=== PATIENT | male | born 1990 | race Caucasian/White ===

== ENCOUNTER → 2025-05-28 19:09 | Outpatient (CLI) | payer OTHER, SELFPAY ==
--- NOTE | 2025-05-28 19:14 | DI.MRI.S_ITS ---
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 Axial thin-slice 3D CISS, coronal TruFISP, axial T1 spin echo with fat saturation through the internal auditory canals. After the administration of contrast, thin slice axial and coronal T1 spin echo with fat saturation through the internal auditory canals, and axial and coronal and sagittal T1 spin echo with fat saturation through the brain. COMPARISON: None. FINDINGS: Image quality: Excellent. Cerebellopontine angles: No cerebellopontine angle masses. Inner ear structures appear normally formed. No suspicious enhancement in the internal auditory canal or along the course of the 7th cranial nerve. CSF spaces: Ventricles are normal in size and shape. No extra-axial fluid collections. Basal cisterns are patent. Brain: No intracranial bleeds or mass effects. Torres-white matter interface is intact. No abnormal intracranial enhancement. Diffusion weighted images demonstrate no acute ischemic insults. Brainstem appears normal. Normal intravascular flow voids are present. Small focus of susceptibility artifact within the right frontal lobe (9/19) is nonspecific. Skull and face: Calvarial marrow signal is normal. Orbits appear normal. Sinuses: Small left maxillary sinus mucous retention cyst. Sinuses and mastoids are otherwise clear. IMPRESSION: No cause for patient's symptoms is identified. Normal appearance of the internal auditory canals and cerebellopontine angles. No acute intracranial abnormalities or abnormal intracranial enhancement. Small focus of susceptibility artifact within the right frontal lobe is nonspecific. May represent small cavernoma or sequela of prior microhemorrhage. Dictated by: Jerry Valdes M.D. on 05/29/2025 at 10:34 Approved by: Jerry Valdes M.D. on 05/29/2025 at 10:39
== END ==
LOC: MRI 19:12
PROVIDERS: PCP Student in an Organized Health Care Education/Training Program; Referring Provider Student in an Organized Health Care Education/Training Program; Visit Provider Student in an Organized Health Care Education/Training Program
DX: H90.A22 Sensorineural hearing loss, unilateral, left ear, with restricted hearing on the contralateral side (principal); J34.1 Cyst and mucocele of nose and nasal sinus
CPT/HCPCS: 70553; A9579